=== PATIENT | male | born 1940 | race Caucasian/White ===

== ENCOUNTER 2025-04-04 10:19 | Day surgery (SDC) | payer OTHER ==
[2025-04-04 10:31] VITALS: BMI 28.9
[2025-04-04 11:43] VITALS: TEMP 98.7
[2025-04-04 12:24] VITALS: BP 125/56; PULSE 67; RESP 18
== END 2025-04-04 13:00 | disposition home or self-care (01) ==
LOC: JASU-ENDO 10:19
PROVIDERS: ATTEND Internal Medicine Gastroenterology
PROC: 0DBK8ZX Excision of Ascending Colon, Via Natural or Artificial Opening Endoscopic, Diagnostic (ICD-10-PCS; principal; 2025-04-04 11:00)
DX: Z12.11 Encounter for screening for malignant neoplasm of colon (principal); D12.2 Benign neoplasm of ascending colon; Z86.0100 Personal history of colon polyps, unspecified
CPT/HCPCS: 88305-TC